=== PATIENT | female | born 1995 | race African-American/Black ===

== ENCOUNTER 2016-09-16 18:26 | Emergency (ER) | payer SELFPAY ==
--- NOTE | 2016-09-16 20:33 | ER Document Report ---
ED Foreign Body - General Chief Complaint: Foreign Body in Vagina Stated Complaint: VAGINAL PROBLEMS Time seen by provider: 20:30 Notes: Patient is a 21-year-old female that comes emergency department with chief complaint of retained foreign body, she states that she had intercourse this morning and afterwards they could not find the condom, she states she could not feel it, she searched the room but could not find it, she believes it is still in the vaginal canal. She denies any abdominal, pelvic, or flank pain. She denies any symptoms. LMP 2 weeks ago. She denies any daily medications. TRAVEL OUTSIDE OF THE [place] IN LAST 30 DAYS: No - Related Data Allergies/Adverse Reactions: No Known Allergies Allergy (Unverified 09/16/16 18:44) Past Medical History - General Information source: Patient - Social History Smoking Status: Never Smoker Drug Abuse: None Lives with: Spouse/Significant other Family History: Reviewed & Not Pertinent Patient has suicidal ideation: No Patient has homicidal ideation: No Pulmonary Medical History: Reports: Hx Asthma Renal/ Medical History: Denies: Hx Peritoneal Dialysis Surgical Hx: Negative - Immunizations Immunizations up to date: Yes Hx Diphtheria, Pertussis, Tetanus Vaccination: Yes Review of Systems - Review of Systems Constitutional: No symptoms reported EENT: No symptoms reported Cardiovascular: No symptoms reported Respiratory: No symptoms reported Gastrointestinal: No symptoms reported Genitourinary: No symptoms reported Female Genitourinary: See HPI Musculoskeletal: No symptoms reported Skin: No symptoms reported Hematologic/Lymphatic: No symptoms reported Neurological/Psychological: No symptoms reported Physical Exam - Vital signs Vitals: Temp Pulse Resp BP Pulse Ox 98.1 F 102 H 18 132/81 H 99 09/16/16 18:44 09/16/16 18:44 09/16/16 18:44 09/16/16 18:44 09/16/16 18:44 Interpretation: Normal - General General appearance: Appears well, Alert In distress: None - HEENT Head: Normocephalic, Atraumatic Eyes: Normal Pupils: PERRL - Respiratory Respiratory status: No respiratory distress Chest status: Nontender Breath sounds: Normal Chest palpation: Normal - Cardiovascular Rhythm: Regular. No: Tachycardia - Patient is not tachycardic on my examination Heart sounds: Normal auscultation, S1 appreciated, S2 appreciated Murmur: No - Abdominal Inspection: Normal Distension: No distension Bowel sounds: Normal Tenderness: Nontender. No: Tender, Guarding Organomegaly: No organomegaly - Genitourinary External exam: Normal Speculum exam: Cervix closed, Other - Loose and unbroken condom noted in the vaginal vault. No: Cervix open Vaginal bleeding: None - Back Back: Normal, Nontender - Extremities General upper extremity: Normal inspection, Nontender, Normal color, Normal ROM , Normal temperature General lower extremity: Normal inspection, Nontender, Normal color, Normal ROM , Normal temperature, Normal weight bearing. No: Chandra's sign - Neurological Neuro grossly intact: Yes Cognition: Normal Orientation: AAOx4 Yousif Coma Scale Eye Opening: Spontaneous Yousif Coma Scale Verbal: Oriented Oxford Coma Scale Motor: Obeys Commands Yousif Coma Scale Total: 15 Speech: Normal Motor strength normal: LUE, RUE, LLE, RLE Sensory: Normal - Psychological Associated symptoms: Normal affect, Normal mood - Skin Skin Temperature: Warm Skin Moisture: Dry Skin Color: Normal Course - Re-evaluation Re-evalutation: Patient talking, laughing, very well-appearing, no complaints other than retained condom. No tachycardia my exam, repeat vital signs showed tachycardia but with no other symptoms and patient talking and laughing there is no evidence of any acute abnormality. Condom was only retained for a few hours. Unremarkable physical exam. Patient is to follow-up with primary care and return for any concerning symptoms. Patient states understanding and agreement. - Vital Signs Vital signs: Temp Pulse Resp BP Pulse Ox 98.3 F 111 H 16 128/79 H 99 09/16/16 21:32 09/16/16 21:32 09/16/16 21:32 09/16/16 21:32 09/16/16 21:32 Procedures - Additional Procedures foreign body removal Notes: ART Eisenberg present during procedure. Lubed speculum inserted into the vaginal canal, after some searching an unbroken condom was found, this was retrieved intact using forceps with one attempt. No bleeding, patient denied pain, no abnormalities noted on exam. Discharge - Discharge Clinical Impression: Retained foreign body of vagina Qualifiers: Encounter type: initial encounter Qualified Code(s): T19.2XXA - Foreign body in vulva and vagina, initial encounter Condition: Stable Disposition: HOME, SELF-CARE Additional Instructions: The condom has been removed intact. Follow up with primary care. Return to the ED for any concerning symptoms.
[2016-09-16 21:35] VITALS: BP 128/79
== END 2016-09-16 21:36 | disposition home or self-care (01) ==
LOC: ER 18:26
DX: T19.2XXA Foreign body in vulva and vagina, initial encounter (principal); X58.XXXA Exposure to other specified factors, initial encounter; Y93.89 Activity, other specified; J45.909 Unspecified asthma, uncomplicated
CPT/HCPCS: 99283